=== PATIENT | male | born 1975 | race Caucasian/White ===

== ENCOUNTER 2022-08-18 16:47 | Inpatient (IN) | payer OTHER ==
[~2022-08-18] VITALS: Ht 185.4 cm; Wt 106.0 kg
[2022-08-18 17:43] LABS: BASOPHILS ABSOLUTE AUTO 0.04 K/mm3 (0.00-0.23); BASOPHILS PERCENT AUTO 0 % (0-2); EOSINOPHILS ABSOLUTE AUTO 0.02 K/mm3 (0.00-0.68); EOSINOPHILS PERCENT AUTO 0 % (0-6); Hematocrit 48.4 % (37.0-53.0); Hemoglobin 17.2 g/dL (13.5-17.5); IMMATURE GRAN ABSOLUTE AUTO 0.07 K/mm3 (0.00-0.10); IMMATURE GRAN PERCENT AUTO 1 % (0-1); LYMPHOCYTES ABSOLUTE AUTO 0.81 K/mm3 (0.84-5.20); LYMPHOCYTES PERCENT AUTO 6 % (21-46); MONOCYTES PERCENT AUTO 6 % (4-13); Mean Corpuscular HGB 33.7 pg (26.0-34.0); Mean Corpuscular HGB Conc 35.5 g/dL (31.5-36.5); Mean Corpuscular Volume 95 fL (80-100); Mean Platelet Volume 10.6 fL (9.1-12.4); NEUTROPHILS ABSOLUTE AUTO 11.11 K/mm3 (1.96-9.15); NEUTROPHILS PERCENT AUTO 87 % (41-73); Platelet Count 172 K/mm3 (150-400); RDW Coefficient Variation 13.2 % (11.7-14.2); RDW Standard Deviation 46.2 fL (35.1-46.3); White Blood Cell Count 12.85 K/mm3 (4.00-11.30)
[2022-08-18 18:01] LABS: Albumin, Blood 3.1 g/dL (3.4-5.0); Albumin/Globulin Ratio 0.8 (0.8-1.8); Bilirubin, Total 0.9 mg/dL (0.1-1.0); Bun/Creatinine Ratio 11.2 (12.0-20.0); Calcium, Blood 8.4 mg/dL (8.5-10.1); Creatinine, Blood 0.89 mg/dL (0.60-1.20); Total Protein, Blood 7.1 g/dL (6.4-8.2)
[2022-08-18] MEDS ORDERED: BUPRENORPHIN-N1 EAC1 SL (18:36)
[2022-08-18 21:00] LABS: Source, Urine Clean Catch
[2022-08-18 21:01] LABS: Bilirubin, Urine Neg (Neg); Blood, Urine Neg (Neg); Glucose Qualitative, Urine 4+ (Neg); Ketones, Urine Neg (Neg); Leukocyte Esterase, Urine Neg (Neg); Nitrite, Urine Neg (Neg); Protein, Urine Neg (Neg); Urobilinogen, Urine NORM (Normal)
[2022-08-18 21:09] LABS: Appearance, Urine Clear (Clear); Color, Urine Yellow (P-Yellow)
[2022-08-18 23:40] VITALS: BP 121/95
--- NOTE | 2022-08-18 23:42 | NUR ---
ADMIT NOTE HANDOFF RECEIVED FROM [employer]. PT ARRIVED TO FLOOR VIA GURNEY. PT A&O X4, INDEPENDENT IN ROOM. IV FLUIDS INFUSING, TELEMETRY ORDERED. CALL BUTTON WITHIN REACH
[2022-08-18] MEDS ORDERED: TRAZ100 PO (23:49)
[2022-08-19 04:26] VITALS: BP 143/91
--- NOTE | 2022-08-19 04:26 | NUR ---
SHIFT SUMMARY ADMITTED FOR PNEUMONIA/SEPSIS. FULL CODE. PLAN IS FOR IV ANTIB RX. IV FLUIDS HAVE COMPLETED. TELEMETRY: NSR @ 87 BPM. T-WAVE INVERSIONS NOTED IN ER, UNSURE IF THEY ARE NEW OR OLD. LACTIC ACID IS TRENDING DOWN. BLOOD CX ORDERED. A&O X4, INDEPENDENT IN ROOM. REGULAR DIET. IV ANTIB RX ARE SCHEDULED.
[2022-08-19 04:39] LABS: BASOPHILS ABSOLUTE AUTO 0.02 K/mm3 (0.00-0.23); BASOPHILS PERCENT AUTO 0 % (0-2); EOSINOPHILS ABSOLUTE AUTO 0.06 K/mm3 (0.00-0.68); EOSINOPHILS PERCENT AUTO 1 % (0-6); Hematocrit 43.9 % (37.0-53.0); Hemoglobin 15.2 g/dL (13.5-17.5); IMMATURE GRAN ABSOLUTE AUTO 0.03 K/mm3 (0.00-0.10); IMMATURE GRAN PERCENT AUTO 0 % (0-1); LYMPHOCYTES ABSOLUTE AUTO 1.19 K/mm3 (0.84-5.20); LYMPHOCYTES PERCENT AUTO 15 % (21-46); MONOCYTES ABSOLUTE AUTO 0.51 K/mm3 (0.16-1.47); MONOCYTES PERCENT AUTO 7 % (4-13); Mean Corpuscular HGB 34.1 pg (26.0-34.0); Mean Corpuscular HGB Conc 34.6 g/dL (31.5-36.5); Mean Corpuscular Volume 98 fL (80-100); Mean Platelet Volume 10.5 fL (9.1-12.4); NEUTROPHILS ABSOLUTE AUTO 5.98 K/mm3 (1.96-9.15); NEUTROPHILS PERCENT AUTO 77 % (41-73); Platelet Count 154 K/mm3 (150-400); RDW Standard Deviation 46.7 fL (35.1-46.3); Red Blood Cell Count 4.46 M/mm3 (4.30-5.90); White Blood Cell Count 7.79 K/mm3 (4.00-11.30)
[2022-08-19 04:58] LABS: Albumin, Blood 2.6 g/dL (3.4-5.0); Albumin/Globulin Ratio 0.8 (0.8-1.8); Bilirubin, Total 0.4 mg/dL (0.1-1.0); Bun/Creatinine Ratio 11.8 (12.0-20.0); Calcium, Blood 7.7 mg/dL (8.5-10.1); Creatinine, Blood 0.93 mg/dL (0.60-1.20); Globulin, Blood 3.3 g/dL (2.2-4.0); Potassium, Blood 3.4 mmol/L (3.5-5.5); Total Protein, Blood 5.9 g/dL (6.4-8.2)
[2022-08-19 07:22] VITALS: BP 138/85
[2022-08-19 16:03] VITALS: BP 166/118
--- NOTE | 2022-08-19 17:40 | NUR ---
SHIFT SUMMARY NO ACUTE CHANGES DURING SHIFT. PT ALERT AND ORIENTED, CALLS APPROPRIATELY. PT REMAINS ON RA, INDEPENDENT IN ROOM AND MONROY. MEDICATED X 1 WITH PRN PAIN MEDICATION. CONTINUE IV ABX. WILL CONTINUE TO MONITOR. CALL LIGHT WITHIN REACH.
[2022-08-19 19:54] VITALS: BP 146/96
--- NOTE | 2022-08-20 04:44 | NUR ---
SHIFT SUMMERY, PT ALERT AND ORIENTED X 4. PT UP AT PRECIOUS AT TIMES AMBULATING IN THE HALLS. PT REQUESTED A SNACK BEFORE BED TIME. PT APPEARS TO BE ASLEEP. CALL LIGHT IN REACH.
[2022-08-20 04:53] LABS: BASOPHILS ABSOLUTE AUTO 0.04 K/mm3 (0.00-0.23); BASOPHILS PERCENT AUTO 1 % (0-2); EOSINOPHILS PERCENT AUTO 3 % (0-6); Hematocrit 44.2 % (37.0-53.0); Hemoglobin 15.7 g/dL (13.5-17.5); IMMATURE GRAN ABSOLUTE AUTO 0.03 K/mm3 (0.00-0.10); IMMATURE GRAN PERCENT AUTO 0 % (0-1); LYMPHOCYTES ABSOLUTE AUTO 1.39 K/mm3 (0.84-5.20); LYMPHOCYTES PERCENT AUTO 20 % (21-46); MONOCYTES ABSOLUTE AUTO 0.56 K/mm3 (0.16-1.47); MONOCYTES PERCENT AUTO 8 % (4-13); Mean Corpuscular HGB Conc 35.5 g/dL (31.5-36.5); Mean Corpuscular Volume 98 fL (80-100); Mean Platelet Volume 10.3 fL (9.1-12.4); NEUTROPHILS PERCENT AUTO 68 % (41-73); Platelet Count 178 K/mm3 (150-400); RDW Coefficient Variation 12.9 % (11.7-14.2); RDW Standard Deviation 46.1 fL (35.1-46.3); Red Blood Cell Count 4.49 M/mm3 (4.30-5.90); White Blood Cell Count 6.82 K/mm3 (4.00-11.30)
[2022-08-20 05:18] LABS: Bun/Creatinine Ratio 8.4 (12.0-20.0); Calcium, Blood 8.6 mg/dL (8.5-10.1); Creatinine, Blood 1.07 mg/dL (0.60-1.20); Potassium, Blood 3.8 mmol/L (3.5-5.5)
[2022-08-20 06:02] VITALS: BP 151/101
[2022-08-20 06:04] VITALS: BP 134/97
[2022-08-20 07:44] VITALS: BP 137/86
[2022-08-20] MEDS ORDERED: AMOCLA875 PO (14:10)
[2022-08-20] MEDS ORDERED: Zithromax500 MG PO (14:11)
== END 2022-08-20 14:30 | disposition home or self-care (01) | DRG 871 ==
LOC: ER 16:47 → MEDS 23:30
PROVIDERS: Internal Medicine; Physician Assistant; Student in an Organized Health Care Education/Training Program; ADMIT Internal Medicine
DX: A41.9 Sepsis, unspecified organism (principal); J18.9 Pneumonia, unspecified organism; J69.0 Pneumonitis due to inhalation of food and vomit; F11.20 Opioid dependence, uncomplicated; E87.20 Acidosis, unspecified; R65.20 Severe sepsis without septic shock; E86.0 Dehydration; R73.9 Hyperglycemia, unspecified; F10.20 Alcohol dependence, uncomplicated; F32.A Depression, unspecified; R94.31 Abnormal electrocardiogram [ECG] [EKG]; R09.1 Pleurisy; Z79.899 Other long term (current) drug therapy; Z86.79 Personal history of other diseases of the circulatory system; Z87.891 Personal history of nicotine dependence
CPT/HCPCS: 36415; 71046; 80048; 80053; 81003; 83036; 83605; 84484; 85025; 93005; 93010; 96361; 96365; 96366; 96375; 99285-25; A9270; J0456; J0696; J1885; J7030; J7050